=== PATIENT | male | born 2000 | race Caucasian/White ===

== ENCOUNTER 2024-06-25 19:37 | Emergency (ER) | payer BC ==
[2024-06-25] MEDS: Lidocaine 1% 5 ML VIAL INJECT ONE (20:13)
== END 2024-06-25 20:36 | disposition home or self-care (01) ==
LOC: CC.ED 19:37
DX: S01.511A Laceration without foreign body of lip, initial encounter (principal); Z88.8 Allergy status to other drugs, medicaments and biological substances; W22.8XXA Striking against or struck by other objects, initial encounter; Y93.67 Activity, basketball
CPT/HCPCS: 12011; 99282; 99283; J3490